=== PATIENT | female | born 1995 | race American Indian/Alaskan Native ===

== ENCOUNTER 2017-02-28 22:00 | Emergency (ER) | payer OTHER ==
[2017-02-28 22:00] VITALS: BMI 27.4
[2017-02-28 22:10] VITALS: BP 138/88; PULSE 99; RESP 18; TEMP 100.2
--- NOTE | 2017-02-28 22:48 | ED PDOC ---
Arrival/HPI - General Chief Complaint: Cough, Cold, Congestion Time Seen by Provider: 02/28/17 22:30 Historian: Patient, Parent (mother) - History of Present Illness Narrative History of Present Illness (Text): 02/28/17 22:43 This 21 yo female who denies pmh, presents to this ED c/o cough x 2 days. Patient noted a travel on a Cruise last month. Mother has similar symptoms. Denies fever, sob, cp, wheezing, or abnormal gait. Time/Duration: Other (2 days) Context: Home Past Medical History - Provider Review Nursing Documentation Reviewed: Yes - Psychiatric Hx Substance Use: No - Anesthesia Hx Anesthesia: No Family/Social History - Physician Review Nursing Documentation Reviewed: Yes Family/Social History: Other (non-contributory) Smoking Status: Never Smoked Hx Alcohol Use: No Hx Substance Use: No Allergies/Home Meds Allergies/Adverse Reactions: Allergies casein Allergy (Verified 09/17/15 01:13) ANAPHYLAXIS cheese Allergy (Verified 09/17/15 01:09) ANAPHYLAXIS corn Allergy (Verified 09/17/15 01:09) ANAPHYLAXIS EGG Allergy (Verified 09/17/15 01:13) ANAPHYLAXIS FISH Allergy (Verified 09/17/15 01:13) ANAPHYLAXIS milk Allergy (Verified 09/17/15 01:09) ANAPHYLAXIS peanut Allergy (Verified 09/17/15 01:09) ANAPHYLAXIS soybean Allergy (Verified 09/17/15 01:13) ANAPHYLAXIS wheat Allergy (Verified 09/17/15 01:09) ANAPHYLAXIS Home Medications: Home Meds Medication Instructions Recorded Confirmed DiphenhydrAMINE [Benadryl] 25 mg PO PRN PRN 09/17/15 02/28/17 Review of Systems - Review of Systems Constitutional: Normal. absent: Fatigue, Weight Change, Fevers, Night Sweats Eyes: Normal ENT: Normal Respiratory: Cough. absent: SOB, Sputum, Wheezing Cardiovascular: Normal. absent: Chest Pain, Palpitations, Edema, Calf Pain, DANG , Orthopnea, Syncope Gastrointestinal: Normal. absent: Abdominal Pain, Nausea, Vomiting Genitourinary Female: Normal. absent: Dysuria, Frequency, Hematuria Musculoskeletal: Normal. absent: Back Pain Skin: Normal. absent: Rash Neurological: Normal. absent: Headache, Dizziness, Focal Weakness, Gait Changes , Speech Changes, Facial Droop, Disequilibrium, Seizure Endocrine: Normal Hemo/Lymphatic: Normal Psychiatric: Normal Physical Exam Vital Signs Temp Pulse Resp BP Pulse Ox 02/28/17 22:10 100.2 F H 99 H 18 138/88 95 Temperature: Afebrile Blood Pressure: Normal Pulse: Regular Respiratory Rate: Normal Appearance: Positive for: Well-Appearing, Non-Toxic, Comfortable Pain Distress: None Mental Status: Positive for: Alert and Oriented X 3 - Systems Exam Head: Present: Atraumatic, Normocephalic Pupils: Present: PERRL Extroacular Muscles: Present: EOMI Conjunctiva: Present: Normal Mouth: Present: Moist Mucous Membranes Neck: Present: Normal Range of Motion, Trachea Midline. No: Meningeal Signs, Paraspinal Tenderness, Lymphadenopathy Respiratory/Chest: Present: Clear to Auscultation, Good Air Exchange. No: Respiratory Distress, Accessory Muscle Use, Wheezes, Decreased Breath Sounds, Rales, Retracting, Rhonchi, Tachypneic, Tender to Palpation Cardiovascular: Present: Regular Rate and Rhythm, Normal S1, S2. No: Murmurs Abdomen: Present: Normal Bowel Sounds. No: Tenderness, Distention, Peritoneal Signs Back: Present: Normal Inspection Upper Extremity: Present: Normal Inspection, Normal ROM, NORMAL PULSES, Neurovascularly Intact. No: Cyanosis, Edema Lower Extremity: Present: Normal Inspection, NORMAL PULSES, Normal ROM, Neurovascularly Intact. No: Edema Neurological: Present: GCS=15, CN II-XII Intact, Speech Normal, Motor Func Grossly Intact, Normal Sensory Function, Normal Cerebellar Funct, Gait Normal Skin: Present: Warm, Dry, Normal Color. No: Rashes Psychiatric: Present: Alert, Oriented x 3, Normal Insight, Normal Concentration Medical Decision Making ED Course and Treatment: 02/28/17 22:53 Re-evaluation. Patient feels better. Discussed results and plan with patient who expresses understanding. All questions answered and there is agreement with the plan to discharge home with instructions. Patient stable for discharge. Return if symptoms persist or worsen. Re-evaluation Time: 22:53 Reassessment Condition: Re-examined, Improved Disposition/Present on Arrival - Present on Arrival Any Indicators Present on Arrival: No History of DVT/PE: No History of Uncontrolled Diabetes: No Urinary Catheter: No History of Decub. Ulcer: No History Surgical Site Infection Following: None - Disposition Have Diagnosis and Disposition been Completed?: Yes Diagnosis: Upper respiratory infection Disposition: HOME/ ROUTINE Disposition Time: 22:57 Patient Plan: Discharge Condition: GOOD Discharge Instructions (ExitCare): Upper Respiratory Infection (ED) Additional Instructions: Call private doctor for follow up visit in 1-2 days. Take medication as instructed, and drink plenty of fluids. Return to emergency if symptoms worsen. Prescriptions: Azithromycin [Z-Yves] 250 mg PO DAILY #4 tab Benzonatate [Tessalon Perles] 100 mg PO TID PRN #20 sgl PRN Reason: Cough Ibuprofen [Motrin] 600 mg PO Q6 #30 tab Referrals: [facility] [Outside] - Follow up with primary [facility] [Outside] - Follow up with primary Forms: [facility] (Eth[place]ian), SCHOOL NOTE
[2017-02-28 23:13] VITALS: O2SAT 99
== END 2017-02-28 23:13 | disposition home or self-care (01) ==
LOC: ED 22:00
DX: J06.9 Acute upper respiratory infection, unspecified (principal)

== ENCOUNTER 2017-12-19 19:54 | Emergency (ER) | payer OTHER ==
[2017-12-19 19:56] VITALS: BMI 27.4
[2017-12-19 20:42] VITALS: TEMP 98.7; O2SAT 100
[2017-12-19] MEDS ORDERED: DiphenhydrAMINE 12.5 mg/5 ml LIQ UD (5 ml) PO STA (20:57)
--- NOTE | 2017-12-19 21:01 | ED PDOC ---
Arrival/HPI - General Chief Complaint: Bite Time Seen by Provider: 12/19/17 20:55 Historian: Patient - History of Present Illness Narrative History of Present Illness (Text): 12/19/17 20:58 22 y/o female, no significant pmh, nkda, c/o rt. thigh insect bite and swelling with redness/pain x 3 days. Pt. stated that she sustained 3 [place] bites on the right thigh about 3 days ago, been itching and scratching, worsening of the swelling and pain started today, no numbness or tingling, no fever or chills, no headache or night sweat, no numbness or tingling, no other medical or psychological complaints. Past Medical History - Provider Review Nursing Documentation Reviewed: Yes - Infectious Disease Hx of Infectious Diseases: None - Psychiatric Hx Substance Use: No - Anesthesia Hx Anesthesia: No Hx Anesthesia Reactions: No Hx Malignant Hyperthermia: No Family/Social History - Physician Review Nursing Documentation Reviewed: Yes Family/Social History: Unknown Family HX Smoking Status: Never Smoked Hx Alcohol Use: No Hx Substance Use: No Allergies/Home Meds Allergies/Adverse Reactions: Allergies casein Allergy (Verified 12/19/17 20:42) ANAPHYLAXIS cheese Allergy (Verified 12/19/17 20:42) ANAPHYLAXIS corn Allergy (Verified 12/19/17 20:42) ANAPHYLAXIS EGG Allergy (Verified 12/19/17 20:42) ANAPHYLAXIS FISH Allergy (Verified 12/19/17 20:42) ANAPHYLAXIS milk Allergy (Verified 12/19/17 20:42) ANAPHYLAXIS peanut Allergy (Verified 12/19/17 20:42) ANAPHYLAXIS soybean Allergy (Verified 12/19/17 20:42) ANAPHYLAXIS wheat Allergy (Verified 12/19/17 20:42) ANAPHYLAXIS Home Medications: Home Meds Medication Instructions Recorded Confirmed DiphenhydrAMINE [Benadryl] 25 mg PO PRN PRN 09/16/12/19/17 Review of Systems - Review of Systems Constitutional: absent: Fatigue, Fevers Eyes: absent: Vision Changes ENT: absent: Hearing Changes Respiratory: absent: SOB, Cough Cardiovascular: absent: Chest Pain Gastrointestinal: absent: Abdominal Pain, Nausea, Vomiting Skin: Rash, Pruritis, Skin Lesions, Cellulitis. absent: Laceration, Abscess, Ulcer Neurological: absent: Headache, Dizziness Psychiatric: absent: Anxiety, Depression, Suicidal Ideation Physical Exam Vital Signs Reviewed: Yes Vital Signs Temp Pulse Resp BP Pulse Ox 12/19/17 20:35 98.7 F 80 19 139/89 100 Temperature: Afebrile Blood Pressure: Normal Pulse: Regular Respiratory Rate: Normal Appearance: Positive for: Well-Appearing, Non-Toxic, Comfortable Pain Distress: Mild Mental Status: Positive for: Alert and Oriented X 3 - Systems Exam Head: Present: Atraumatic, Normocephalic Pupils: Present: PERRL Extroacular Muscles: Present: EOMI Conjunctiva: Present: Normal Mouth: Present: Moist Mucous Membranes Neck: Present: Normal Range of Motion Respiratory/Chest: Present: Clear to Auscultation, Good Air Exchange. No: Respiratory Distress, Accessory Muscle Use Cardiovascular: Present: Regular Rate and Rhythm, Normal S1, S2. No: Murmurs Abdomen: No: Tenderness, Distention, Peritoneal Signs Back: Present: Normal Inspection Upper Extremity: Present: Normal Inspection. No: Cyanosis, Edema Lower Extremity: Present: Normal Inspection. No: Edema Neurological: Present: GCS=15, CN II-XII Intact, Speech Normal Skin: Present: Warm, Dry, Rashes (rt. anterior thigh visible 3 [place] bite with cellulitis approx. 3cm diameter each with no streaking, no circumferential redness, no regional lymphenapathy), Normal Color Psychiatric: Present: Alert, Oriented x 3, Normal Insight, Normal Concentration Medical Decision Making ED Course and Treatment: 12/19/17 21:00 - is negative -motrin/benadryl/keflex -Discharge home with keflex, zyrtec, motrin, topical steroid cream, avoid exposure to plant or [place] populated region, follow up with your own pmd and hostage negotiator within 2 days, return to the ER for any new or worsening signs or symptoms. - Medication Orders Current Medication Orders: Discontinued Medications Cephalexin Monohydrate (Keflex) 500 mg PO STAT STA PRN Reason: Protocol Stop: 12/19/17 20:58 Diphenhydramine HCl (Benadryl) 25 mg PO STAT STA Stop: 12/19/17 20:58 Ibuprofen (Motrin Tab) 600 mg PO STAT STA Stop: 12/19/17 21:01 - PA / AIRLINE COUNTER AGENT / Resident Statement MD/DO has reviewed & agrees with the documentation as recorded. Disposition/Present on Arrival - Present on Arrival Any Indicators Present on Arrival: No History of DVT/PE: No History of Uncontrolled Diabetes: No Urinary Catheter: No History of Decub. Ulcer: No History Surgical Site Infection Following: None - Disposition Have Diagnosis and Disposition been Completed?: Yes Diagnosis: Insect bite, Cellulitis Disposition: HOME/ ROUTINE Disposition Time: 21:02 Patient Plan: Discharge Patient Problems: Current Active Problems Problem Status Onset Insect bite Acute Cellulitis Acute Condition: GOOD Discharge Instructions (ExitCare): Cellulitis (ED) Additional Instructions: -Discharge home with keflex, zyrtec, motrin, topical steroid cream, avoid exposure to plant or [place] populated region, follow up with your own pmd and hostage negotiator within 2 days, return to the ER for any new or worsening signs or symptoms. Prescriptions: Cephalexin [Keflex] 500 mg PO QID #28 capsule Cetirizine HCl [Zyrtec] 10 mg PO DAILY PRN #7 capsule PRN Reason: Other Ibuprofen [Motrin] 600 mg PO TID PRN #21 tab PRN Reason: Other Triamcinolone 0.025 % [Triamcinolone 0.025 % Cream] 1 appl TOP BID #15 g Referrals: Akua Garcia MD [Staff Provider] - Follow up with primary [facility] [Outside] - Follow up with primary Forms: WORK NOTE
[2017-12-19 22:32] VITALS: BP 116/72; PULSE 88; RESP 17
== END 2017-12-19 21:18 | disposition home or self-care (01) ==
LOC: ED 19:54
DX: S70.361A Insect bite (nonvenomous), right thigh, initial encounter (principal); L03.115 Cellulitis of right lower limb; W57.XXXA Bitten or stung by nonvenomous insect and other nonvenomous arthropods, initial encounter